=== PATIENT | female | born 1940 | race Caucasian/White ===

== ENCOUNTER 2018-10-23 18:45 | Inpatient (IN) | payer MEDICARE, MEDICAID ==
[~2018-10-23] VITALS: Ht 152.4 cm; Wt 125.3 kg
[2018-10-23 18:48] VITALS: BP 170/84
--- NOTE | 2018-10-23 18:59 | NUR ---
WHILE SLEEPING, POX DROPS TO 86%. PT AWAKENED, STATES SHE HAS "UNDIAGNOSED SLEEP APNEA". O2 APPLIED.
[2018-10-23 19:41] LABS: BASO % 0.1 % (0.0-1.0); EOS # 0.1 10*3/uL (0.0-0.4); EOS % 0.9 % (1.0-4.0); HEMATOCRIT 42.2 % (37.0-47.0); HEMOGLOBIN 13.9 g/dl (12.0-16.0); LYMPH # 1.6 10*3/uL (1.3-4.4); LYMPH % 11.2 % (27.0-41.0); MEAN CELL VOLUME 91.3 fl (81.0-99.0); MEAN CORPUSCULAR HGB 30.1 pg (27.0-31.0); MEAN CORPUSCULAR HGB CONC 32.9 g/dl (33.0-37.0); MEAN PLATELET VOLUME 9.8 fl (9.6-12.3); MONO # 0.6 10*3/uL (0.1-1.0); MONO % 4.1 % (3.0-9.0); NEUT # 11.8 10*3/uL (2.3-7.9); NEUT % 83.2 % (47.0-73.0); PLATELET COUNT AUTOMATED 242 10*3/uL (130-400); RED BLOOD COUNT 4.62 10*6/uL (4.10-5.10); RED CELL DISTRI WIDTH 14.8 % (0-14.5); WHITE BLOOD COUNT 14.2 10*3/uL (4.8-10.8)
--- NOTE | 2018-10-23 19:49 | NUR ---
PATIENT MEDICATED WITH WITH MEDICINES THAT ARE ORDERED. UNABLE TO SCAN THEM IN THE EMAR AT THIS TIME [place] THE COMPUTER FROZE, AND THIS RN IS NOW LOCKED OUT OF EMAR ON PORTABLE COMPUTER.
[2018-10-23 20:02] LABS: ALBUMIN 2.9 gm/dl (3.1-4.5); ALKALINE PHOSPHATASE 125 U/L (45-117); BUN 17 mg/dl (7-24); CHLORIDE 100 mmol/L (98-107); CREATININE 0.71 mg/dL (0.55-1.02); LIPASE 56 U/L (73-393); POTASSIUM 4.4 mmol/L (3.5-5.1); SGOT/AST 48 IU/L (3-35); SGPT/ALT 53 U/L (12-78); SODIUM 136 mmol/L (136-145); TOTAL PROTEIN 7.4 gm/dL (6.4-8.2)
--- NOTE | 2018-10-23 20:59 | NUR ---
PATIENT STATES ZOFRAN AND BENTYL ARE EFFECTIVE.
[2018-10-23 21:48] LABS: BILIRUBIN NEGATIVE (NEGATIVE); BLOOD NEGATIVE (NEGATIVE); CLARITY CLEAR (CLEAR); COLOR YELLOW (YELLOW); GLUCOSE NEGATIVE (NEGATIVE); KETONE NEGATIVE (NEGATIVE); LEUKO ESTERASE NEGATIVE (NEGATIVE); NITRITE NEGATIVE (NEGATIVE); PH 7.5 (5.0-9.0); UROBILINOGEN 0.2 E.U./dl (0.2-1.0)
[2018-10-23 21:55] LABS: BACTERIA TRACE
[2018-10-23 21:56] LABS: URINE AMPHETAMINES < 1000 (1000ng/ml); URINE BARBITURATES < 200 (200ng/ml); URINE BENZODIAZEPINES < 200 (200ng/ml); URINE CANNABINOIDS (THC) < 50 (50ng/ml); URINE COCAINE < 300 (300ng/ml); URINE METHADONE < 300 (300ng/ml); URINE OPIATES > 300 (300ng/ml)
[2018-10-23 21:59] LABS: URINE PHENCYCLIDINE < 25 (25ng/ml)
[2018-10-23 23:14] VITALS: BP 162/70
--- NOTE | 2018-10-24 01:03 | NUR ---
PATIENT RESTING IN BED WATCHING T.V DENIES DISCOMFORT AT THIS TIME. BED IN LOW POSTION, SIDE RAILS UPX2, CALL LIGHT IN REACH.
--- NOTE | 2018-10-24 03:03 | NUR ---
COCCYX RUDI AND BLANCHABLE. NO OPEN WOUNDS. PT REPOSITIONED. URINE OBTAINED STRAIGHT CATH AND SENT. PT INC OF FOUL SMELLING URINE.
--- NOTE | 2018-10-24 04:18 | NUR ---
ASSISTED PATIENT UP TO BEDSIDE WITHOUT DIFFICULTIES. WILL CONTINUE TO MONITOR.
[2018-10-24 05:46] VITALS: BP 135/71
[2018-10-24 06:12] LABS: BASO % 0.2 % (0.0-1.0); EOS # 0.4 10*3/uL (0.0-0.4); EOS % 4.4 % (1.0-4.0); HEMATOCRIT 38.3 % (37.0-47.0); LYMPH # 2.8 10*3/uL (1.3-4.4); LYMPH % 35.2 % (27.0-41.0); MEAN CELL VOLUME 94.1 fl (81.0-99.0); MEAN CORPUSCULAR HGB 29.5 pg (27.0-31.0); MEAN CORPUSCULAR HGB CONC 31.3 g/dl (33.0-37.0); MEAN PLATELET VOLUME 10.1 fl (9.6-12.3); MONO # 0.6 10*3/uL (0.1-1.0); MONO % 7.8 % (3.0-9.0); NEUT # 4.2 10*3/uL (2.3-7.9); NEUT % 51.9 % (47.0-73.0); PLATELET COUNT AUTOMATED 221 10*3/uL (130-400); RED BLOOD COUNT 4.07 10*6/uL (4.10-5.10); RED CELL DISTRI WIDTH 15.2 % (0-14.5)
[2018-10-24 06:15] LABS: BUN 15 mg/dl (7-24); CHLORIDE 102 mmol/L (98-107); CREATININE 0.86 mg/dL (0.55-1.02); PHOSPHOROUS 3.1 mg/dL (2.5-4.9); POTASSIUM 4.3 mmol/L (3.5-5.1); SODIUM 138 mmol/L (136-145)
--- NOTE | 2018-10-24 07:28 | NUR ---
PT ASLEEP, SNORING, RESPS EASY.
--- NOTE | 2018-10-24 08:58 | NUR ---
PATIENT ADMITTED TO [facility] AT 0836. A 78, admitted to 5E, under the services of JAY Norton DO with a diagnosis of . Chief complaint is DIARHEA. Patient arrived via bed from ER. Monitor applied. Initial assessment completed. Vital signs taken and recorded. JAY NORTON DO notified of admission to the unit. Orders received. See assessment for past medical history, medications and allergies. Patient and/or family oriented to unit. [facility]. Clothing/patient valuable form completed. PATIENT COMPLAINS OF CHRONIC PAIN DUE TO PRIOR DIAGNOSIS OF IDEOPATHIC NEUROPATHY. SHE STATES SHE IS ON PRESCRIBED OPIOID MEDICATIONS FROM HER PCP IN [place]. SHE SELF MEDICATED WITH 30 MG OXYCODONE (SHE STATED IT SUCH) WHICH SHE TOOK FROM AN ASPIRIN BOTTLE WITH 3 DIFFERENT MEDICATIONS, THEN HANDED ME A BAG FULL OF MEDICATION. SKIN INTACT WITH NO WOUNDS PNEUMO VAX CURRENT DECLINES FLU VAX. [place]
[2018-10-24 09:06] VITALS: BP 161/98
--- NOTE | 2018-10-24 09:59 | NUR ---
MADE NOTE TO [employer]IAL[employer] REGUARDING HOME HEALTH CARE ON DC.
[2018-10-24] MEDS ORDERED: GABAPENTIN600 MG PO (10:45)
[2018-10-24] MEDS ORDERED: MYRBETRIQ50 M1 PO (10:45)
[2018-10-24] MEDS ORDERED: LISINOPRIL40 MG PO (10:46)
[2018-10-24] MEDS ORDERED: DULERA 100 MCG8.8 GM INH (10:46)
[2018-10-24] MEDS ORDERED: OXYCODONE HCL30 MG PO (10:47)
[2018-10-24] MEDS ORDERED: DULOXETINE HCL60 MG PO (10:47)
[2018-10-24] MEDS ORDERED: OXYCODONE HCL10 M1 PO (10:49)
[2018-10-24] MEDS ORDERED: ONDANSETRON HYDR4 MG PO (10:50)
[2018-10-24] MEDS ORDERED: PANTOPRAZOLE SO40 MG PO (11:31)
[2018-10-24] MEDS ORDERED: VITAMIN D32000 UNI1 PO (11:49)
[2018-10-24 12:00] VITALS: BP 145/76
--- NOTE | 2018-10-24 13:50 | NUR ---
Employee Relations Specialist in to talk to patient. Patient states lives at HOME with ALONE. There are 2 steps in the home. Physician: MIRIAM ALMANZAR Pharmacy: [place] Home health services: NONE Patient's level of ADLs: INDEPENDENT Patient has working utilities: YES DME: LUCIA BARON Follow-up physician's appointment after d/c: WILL MADE ONE WHEN SHE GETS BACK TO [place] Does patient want to access PORTAL?: NO Discharge plan PT LIVES AT HOME ALONE AND WAS VISITING FROM [place]. STATES SHE WILL FOLLOW UP WITH HER DOCTOR WHEN SHE GETS BACK TO [place]. HAS NO NEEDS AT THIS TIME. WILL CONTINUE TO FOLLOW. WILL HAVE A RIDE BACK TO [place] WHERE SHE IS VISITING. . NINA RINCON
[2018-10-24 16:00] VITALS: BP 167/70
--- NOTE | 2018-10-24 19:00 | NUR ---
ASSUMED CARE OF KACIE, PATIENT IS RESTING IN BED WITH EASY AND REGULAR RESPERS ON ROOM AIR. ASSESSMENT IS COMPLETE WITH NO C/O OR S/S OF DISTRESS NOTED AT THIS TIME. BED IS LOW, LOCKED, AND CALL LIGHT IS WITHIN REACH. SEE SHIFT ASSESSMENT.
[2018-10-24 20:00] VITALS: BP 153/73
--- NOTE | 2018-10-24 21:45 | NUR ---
2200 MEDICATIONS GIVEN AT THIS TIME, PATIENT TOLERATED WELL. CALL LIGHT IS WITHIN REACH.
--- NOTE | 2018-10-24 23:07 | NUR ---
DYSPNEA NOTED WHILE PASSING 0000 MEDICATIONS. PATIENT PLACED ON 02, 2L VIA NASAL CANNULA. 0000 MEDICATIONS GIVEN, WILL MONITOR EFFECT.
[2018-10-25] VITALS: BP 144/89
--- NOTE | 2018-10-25 02:14 | NUR ---
PATIENT C/O ANXIETY/INSOMNIA, CALL PLACED TO DR. SABILLON REQUESTING RESTORIL, SEE NEW ORDERS.
[2018-10-25 08:00] VITALS: BP 98/60
[2018-10-25 12:00] VITALS: BP 160/84
[2018-10-25 16:00] VITALS: BP 142/65
--- NOTE | 2018-10-25 18:01 | NUR ---
WOKE UP TO GIVE OXY-IR. SHE ASKS THAT WE WAKE HER EVEN WHEN SLEEPING FOR HER ROUTING PAIN MED'S. PAIN IS IN HER HAND/ARMS/LEGS/BACK.
--- NOTE | 2018-10-25 18:20 | NUR ---
MEDICATED WITH ZOFRAN FOR COMPLAINTS OF NAUSEA
[2018-10-25 20:00] VITALS: BP 146/66
[2018-10-26] VITALS: BP 152/63
--- NOTE | 2018-10-26 00:35 | NUR ---
PT MEDICATED W/ZOFRAN FOR C/O NAUSEA.
[2018-10-26 08:00] VITALS: BP 152/76
[2018-10-26 10:02] LABS: BASO % 0.3 % (0.0-1.0); EOS # 0.3 10*3/uL (0.0-0.4); EOS % 4.4 % (1.0-4.0); HEMATOCRIT 38.5 % (37.0-47.0); HEMOGLOBIN 11.9 g/dl (12.0-16.0); LYMPH # 1.9 10*3/uL (1.3-4.4); LYMPH % 30.3 % (27.0-41.0); MEAN CELL VOLUME 93.2 fl (81.0-99.0); MEAN CORPUSCULAR HGB 28.8 pg (27.0-31.0); MEAN CORPUSCULAR HGB CONC 30.9 g/dl (33.0-37.0); MONO # 0.4 10*3/uL (0.1-1.0); MONO % 6.3 % (3.0-9.0); NEUT # 3.7 10*3/uL (2.3-7.9); NEUT % 58.4 % (47.0-73.0); PLATELET COUNT AUTOMATED 187 10*3/uL (130-400); RED BLOOD COUNT 4.13 10*6/uL (4.10-5.10); RED CELL DISTRI WIDTH 14.8 % (0-14.5); WHITE BLOOD COUNT 6.4 10*3/uL (4.8-10.8)
[2018-10-26 10:30] LABS: ALBUMIN 2.9 gm/dl (3.1-4.5); ALKALINE PHOSPHATASE 113 U/L (45-117); BUN 6 mg/dl (7-24); CHLORIDE 102 mmol/L (98-107); POTASSIUM 3.6 mmol/L (3.5-5.1); SGOT/AST 45 IU/L (3-35); SGPT/ALT 48 U/L (12-78); SODIUM 137 mmol/L (136-145); TOTAL PROTEIN 7.2 gm/dL (6.4-8.2)
--- NOTE | 2018-10-26 11:51 | NUR ---
PT CONTINUES TO DENY HOME NEEDS ON DISCHARGE.
[2018-10-26 12:00] VITALS: BP 136/76
[2018-10-26 16:00] VITALS: BP 167/86
[2018-10-26 20:00] VITALS: BP 169/65
[2018-10-27] VITALS: BP 142/88
[2018-10-27 06:03] LABS: BASO % 0.4 % (0.0-1.0); EOS # 0.3 10*3/uL (0.0-0.4); EOS % 4.8 % (1.0-4.0); HEMATOCRIT 42.8 % (37.0-47.0); HEMOGLOBIN 13.4 g/dl (12.0-16.0); LYMPH # 1.9 10*3/uL (1.3-4.4); LYMPH % 27.2 % (27.0-41.0); MEAN CELL VOLUME 94.1 fl (81.0-99.0); MEAN CORPUSCULAR HGB 29.5 pg (27.0-31.0); MEAN CORPUSCULAR HGB CONC 31.3 g/dl (33.0-37.0); MEAN PLATELET VOLUME 9.9 fl (9.6-12.3); MONO # 0.4 10*3/uL (0.1-1.0); MONO % 5.6 % (3.0-9.0); NEUT # 4.4 10*3/uL (2.3-7.9); NEUT % 61.7 % (47.0-73.0); PLATELET COUNT AUTOMATED 211 10*3/uL (130-400); RED BLOOD COUNT 4.55 10*6/uL (4.10-5.10); RED CELL DISTRI WIDTH 14.6 % (0-14.5); WHITE BLOOD COUNT 7.1 10*3/uL (4.8-10.8)
[2018-10-27 06:31] LABS: CREATININE 0.72 mg/dL (0.55-1.02)
[2018-10-27] MEDS ORDERED: FLAGYL500 MG PO (08:34)
[2018-10-27] MEDS ORDERED: CIPRO500 MG PO (08:34)
[2018-10-27 12:00] VITALS: BP 154/66
--- NOTE | 2018-10-27 13:49 | NUR ---
WENT TO ROOM TO TALK WITH PT ABOUT HOME HEALTH. SHE STATES SHE HAD [facility] WHEN SHE GOT OUT OF [facility] THAT CAME ONE TIME THEN SHE ENDED BACK IN HOSPITAL. PT STATES SHE IS GOING BACK TO HER HOME IN [place] WITHIN THE NEXT FEW DAYS AND WILL FOLLOW UP WITH HER DOCTORS THERE AND ASK THEM FOR HELP IF SHE FEELS SHE NEEDS IT. DOES NOT WANT TO SET UP WITH [facility] AGAIN, STATES SHE WILL ONLY BE IN [place] A COUPLE MORE DAYS.
--- NOTE | 2018-10-27 14:51 | NUR ---
PT DISCHARGED HOME AT THIS TIME. [facility] AND [facility]LE[facility] DC'S. VSS. PRESCRIPTIONS AND FOLLOW UP CARE DISCUSSED.
--- NOTE | 2018-10-31 14:17 | NUR ---
OUMAR faxed over and update and discharge orders for pt to [facility]. LEVI Chase MSW,[employer]
== END 2018-10-27 14:51 | disposition home or self-care (01) | DRG 872 ==
LOC: ED 18:45 → EDHOLD 22:35 → 5E 22:35
PROVIDERS: Nurse Practitioner Family; Registered Nurse; Student in an Organized Health Care Education/Training Program; ADMIT Emergency Medicine
DX: A41.9 Sepsis, unspecified organism (principal); K57.92 Diverticulitis of intestine, part unspecified, without perforation or abscess without bleeding; F32.1 Major depressive disorder, single episode, moderate; E44.0 Moderate protein-calorie malnutrition; Z68.43 Body mass index [BMI] 50.0-59.9, adult; Z96.653 Presence of artificial knee joint, bilateral; F41.1 Generalized anxiety disorder; I10 Essential (primary) hypertension; E66.01 Morbid (severe) obesity due to excess calories; G60.9 Hereditary and idiopathic neuropathy, unspecified; G89.4 Chronic pain syndrome; J45.909 Unspecified asthma, uncomplicated; E83.51 Hypocalcemia; K74.60 Unspecified cirrhosis of liver; R91.1 Solitary pulmonary nodule; Z88.0 Allergy status to penicillin; Z88.8 Allergy status to other drugs, medicaments and biological substances; Z79.899 Other long term (current) drug therapy; Z90.49 Acquired absence of other specified parts of digestive tract; Z90.710 Acquired absence of both cervix and uterus